=== PATIENT | male | born 1965 | race Caucasian/White ===

== ENCOUNTER 2022-04-25 03:58 | Emergency (ER) | payer OTHER ==
[~2022-04-25] VITALS: Ht 167.6 cm; Wt 59.0 kg
[2022-04-25 04:36] LABS: BASOPHILS ABSOLUTE AUTO 0.05 K/mm3 (0.00-0.23); BASOPHILS PERCENT AUTO 1 % (0-2); EOSINOPHILS ABSOLUTE AUTO 0.09 K/mm3 (0.00-0.68); EOSINOPHILS PERCENT AUTO 1 % (0-6); Hematocrit 51.2 % (37.0-53.0); IMMATURE GRAN ABSOLUTE AUTO 0.06 K/mm3 (0.00-0.10); IMMATURE GRAN PERCENT AUTO 1 % (0-1); LYMPHOCYTES ABSOLUTE AUTO 2.77 K/mm3 (0.84-5.20); LYMPHOCYTES PERCENT AUTO 40 % (21-46); MONOCYTES ABSOLUTE AUTO 0.67 K/mm3 (0.16-1.47); MONOCYTES PERCENT AUTO 10 % (4-13); Mean Corpuscular HGB 35.1 pg (26.0-34.0); Mean Corpuscular HGB Conc 35.2 g/dL (31.5-36.5); Mean Corpuscular Volume 100 fL (80-100); Mean Platelet Volume 12.1 fL (9.1-12.4); NEUTROPHILS ABSOLUTE AUTO 3.27 K/mm3 (1.96-9.15); NEUTROPHILS PERCENT AUTO 47 % (41-73); Platelet Count 144 K/mm3 (150-400); RDW Coefficient Variation 13.1 % (11.7-14.2); RDW Standard Deviation 48.7 fL (35.1-46.3); Red Blood Cell Count 5.13 M/mm3 (4.30-5.90); White Blood Cell Count 6.91 K/mm3 (4.00-11.30)
[2022-04-25 04:59] LABS: Albumin, Blood 3.6 g/dL (3.4-5.0); Albumin/Globulin Ratio 1.1 (0.8-1.8); Bilirubin, Total 0.3 mg/dL (0.1-1.0); Bun/Creatinine Ratio 5.6 (12.0-20.0); Calcium, Blood 8.8 mg/dL (8.5-10.1); Creatinine, Blood 0.89 mg/dL (0.60-1.20); Globulin, Blood 3.2 g/dL (2.2-4.0); Potassium, Blood 4.1 mmol/L (3.5-5.5); Total Protein, Blood 6.8 g/dL (6.4-8.2)
== END 2022-04-25 07:04 | disposition home or self-care (01) ==
LOC: ER 03:58
PROVIDERS: Family Medicine
DX: R42 Dizziness and giddiness (principal); I10 Essential (primary) hypertension; Z72.0 Tobacco use
CPT/HCPCS: 36415; 70450; 80053; 85025; J2550

== ENCOUNTER 2025-05-02 09:47 | Emergency (ER) | payer OTHER ==
[~2025-05-02] VITALS: Ht 167.6 cm; Wt 59.0 kg
[~2025-05-02 09:47] MED LIST: AMOCLA875 PO; B-1100 M1 PO; FOLI1 PO
[2025-05-02 10:02] VITALS: BP 151/98
[2025-05-02] MEDS ORDERED: Prinivil10 MG PO (10:07)
[2025-05-02] MEDS ORDERED: SULTRIDS PO (11:11)
== END 2025-05-02 11:57 | disposition home or self-care (01) ==
LOC: ER 09:47
DX: L03.011 Cellulitis of right finger (principal); Z79.899 Other long term (current) drug therapy
CPT/HCPCS: 73140; 90471; 90715; 99283-25

== ENCOUNTER 2025-08-26 13:08 | Emergency (ER) | payer OTHER ==
[~2025-08-26] VITALS: Ht 167.6 cm; Wt 54.4 kg
[~2025-08-26 13:08] MED LIST changes: +Prinivil10 MG PO; +SULTRIDS PO
[2025-08-26 13:24] VITALS: BP 113/84
[2025-08-27] MEDS ORDERED: Simvastatin20 MG PO (00:56)
[2025-08-27] MEDS ORDERED: PLAVIX75 MG PO (00:56)
== END 2025-08-26 15:30 | disposition home or self-care (01) ==
LOC: ER 13:08
DX: R04.0 Epistaxis (principal); I10 Essential (primary) hypertension; Z79.899 Other long term (current) drug therapy
CPT/HCPCS: 30901; 99283-25; A9270

== ENCOUNTER 2025-08-26 21:45 | Emergency (ER) | payer OTHER ==
[~2025-08-26] VITALS: Ht 167.6 cm; Wt 55.3 kg
[2025-08-26] MEDS ORDERED: Oxymetazoline 0.05% Nasal Relief Spray 15mL BTL ONE (22:00)
[2025-08-26] MEDS ORDERED: Tranexamic Acid 1000 MG/10 ML 10ML Vial (SDV) TOP ONE (23:40)
[2025-08-26 23:51] LABS: BASOPHILS ABSOLUTE AUTO 0.06 K/mm3 (0.00-0.23); BASOPHILS PERCENT AUTO 1 % (0-2); EOSINOPHILS ABSOLUTE AUTO 0.17 K/mm3 (0.00-0.68); EOSINOPHILS PERCENT AUTO 1 % (0-6); Hematocrit 42.1 % (37.0-53.0); Hemoglobin 14.4 g/dL (13.5-17.5); IMMATURE GRAN ABSOLUTE AUTO 0.10 K/mm3 (0.00-0.10); IMMATURE GRAN PERCENT AUTO 1 % (0-1); LYMPHOCYTES ABSOLUTE AUTO 2.43 K/mm3 (0.84-5.20); LYMPHOCYTES PERCENT AUTO 20 % (21-46); MONOCYTES ABSOLUTE AUTO 1.01 K/mm3 (0.16-1.47); MONOCYTES PERCENT AUTO 8 % (4-13); Mean Corpuscular HGB Conc 34.2 g/dL (31.5-36.5); Mean Corpuscular Volume 107 fL (80-100); NEUTROPHILS ABSOLUTE AUTO 8.68 K/mm3 (1.96-9.15); NEUTROPHILS PERCENT AUTO 70 % (41-73); NRBC ABSOLUTE 0.00 K/mm3 (0.00-0.02); NRBC Auto 0.0 /100 WBC (0.0-0.2); Platelet Count 209 K/mm3 (150-400); RDW Coefficient Variation 12.9 % (11.7-14.2); RDW Standard Deviation 51.0 fL (35.1-46.3)
[2025-08-27 00:12] LABS: Alanine Aminotransfer (ALT/SGP 35.0 U/L (12-78); Albumin, Blood 4.0 g/dL (3.4-5.0); Albumin/Globulin Ratio 1.3 (0.8-1.8); Anion Gap 8.0 mmol/L (3-11); Aspartate Aminotrans (AST/SGOT 29.0 U/L (12-37); Bilirubin, Total 0.7 mg/dL (0.1-1.0); Blood Urea Nitrogen 13.0 mg/dL (8-24); CO2, Blood 31.0 mmol/L (21-32); Calcium, Blood 9.1 mg/dL (8.5-10.1); Chloride, Blood 101.0 mmol/L (98-108); Creatinine, Blood 0.75 mg/dL (0.60-1.20); Globulin, Blood 3.1 g/dL (2.2-4.0); Glucose, Blood 128.0 mg/dL (70-99); Potassium, Blood 4.1 mmol/L (3.5-5.5); Sodium, Blood 136.0 mmol/L (136-145); Total Protein, Blood 7.1 g/dL (6.4-8.2)
[2025-08-27 00:14] LABS: Prothrombin Time Results 11.4 Sec (9.7-11.5)
[2025-08-27] MEDS ORDERED: Morphine Sulfate 4 MG/1 ML Injection IV ONE (00:40)
[2025-08-27] MEDS ORDERED: Ondansetron HCl 2 MG / ML 2ML Vial IV ONE (00:45)
[2025-08-27] MEDS ORDERED: Tranexamic Acid 100 ML IV ONE (00:50)
[2025-08-27] MEDS ORDERED: NS 1,000 ML IV ONE (00:52)
[2025-08-27] MEDS ORDERED: Simvastatin20 MG PO (00:56)
[2025-08-27] MEDS ORDERED: PLAVIX75 MG PO (00:56)
[2025-08-27] MEDS ORDERED: NS 1,000 ML IV SCH (01:00)
[2025-08-27] MEDS ORDERED: FentaNYL Citrate 50 MCG/ML 2 ML Injection IV ONE (01:35)
[2025-08-27 02:12] LABS: Hematocrit 35.8 % (37.0-53.0); Hemoglobin 12.1 g/dL (13.5-17.5)
[2025-08-27 02:30] VITALS: BP 189/103
== END 2025-08-27 02:50 | disposition short-term general hospital (02) ==
LOC: ER 21:45
PROVIDERS: Student in an Organized Health Care Education/Training Program
DX: R04.0 Epistaxis (principal); I10 Essential (primary) hypertension; Z88.8 Allergy status to other drugs, medicaments and biological substances
CPT/HCPCS: 30901; 30903; 30906; 80053; 85014; 85018; 85025; 85610; 85730; 86850; 86900; 86901; 96374; 96375; 99283-25; 99285; A9270; J2270; J2405; J3010; J7030

== ENCOUNTER 2025-08-31 13:42 | Emergency (ER) | payer OTHER ==
[~2025-08-31] VITALS: Ht 167.6 cm; Wt 54.9 kg
[~2025-08-31 13:42] MED LIST changes: +PLAVIX75 MG PO; +Simvastatin20 MG PO
[2025-08-31] MEDS ORDERED: NS 1,000 ML IV SCH (13:55)
[2025-08-31 14:21] LABS: BASOPHILS ABSOLUTE AUTO 0.04 K/mm3 (0.00-0.23); BASOPHILS PERCENT AUTO 0 % (0-2); EOSINOPHILS ABSOLUTE AUTO 0.08 K/mm3 (0.00-0.68); EOSINOPHILS PERCENT AUTO 1 % (0-6); Hematocrit 29.1 % (37.0-53.0); Hemoglobin 9.8 g/dL (13.5-17.5); IMMATURE GRAN ABSOLUTE AUTO 0.19 K/mm3 (0.00-0.10); IMMATURE GRAN PERCENT AUTO 2 % (0-1); LYMPHOCYTES ABSOLUTE AUTO 1.86 K/mm3 (0.84-5.20); LYMPHOCYTES PERCENT AUTO 16 % (21-46); MONOCYTES ABSOLUTE AUTO 1.05 K/mm3 (0.16-1.47); MONOCYTES PERCENT AUTO 9 % (4-13); Mean Corpuscular HGB Conc 33.7 g/dL (31.5-36.5); Mean Corpuscular Volume 105 fL (80-100); NEUTROPHILS ABSOLUTE AUTO 8.31 K/mm3 (1.96-9.15); NEUTROPHILS PERCENT AUTO 72 % (41-73); NRBC ABSOLUTE 0.00 K/mm3 (0.00-0.02); NRBC Auto 0.0 /100 WBC (0.0-0.2); Platelet Count 258 K/mm3 (150-400); RDW Coefficient Variation 12.9 % (11.7-14.2); RDW Standard Deviation 49.2 fL (35.1-46.3)
[2025-08-31 14:45] LABS: Alanine Aminotransfer (ALT/SGP 23.0 U/L (12-78); Albumin, Blood 3.7 g/dL (3.4-5.0); Albumin/Globulin Ratio 1.1 (0.8-1.8); Anion Gap 6.0 mmol/L (3-11); Aspartate Aminotrans (AST/SGOT 26.0 U/L (12-37); Bilirubin, Total 0.3 mg/dL (0.1-1.0); Blood Urea Nitrogen 43.0 mg/dL (8-24); CO2, Blood 32.0 mmol/L (21-32); Calcium, Blood 9.2 mg/dL (8.5-10.1); Chloride, Blood 98.0 mmol/L (98-108); Creatinine, Blood 1.43 mg/dL (0.60-1.20); Globulin, Blood 3.4 g/dL (2.2-4.0); Glucose, Blood 141.0 mg/dL (70-99); Potassium, Blood 4.0 mmol/L (3.5-5.5); Sodium, Blood 132.0 mmol/L (136-145); Total Protein, Blood 7.1 g/dL (6.4-8.2)
[2025-08-31] MEDS ORDERED: Tranexamic Acid 1000 MG/10 ML 10ML Vial (SDV) INH ONE (17:05)
[2025-08-31 18:00] VITALS: BP 145/93
== END 2025-08-31 18:07 | disposition home or self-care (01) ==
LOC: ER 13:42
PROVIDERS: Physician Assistant
DX: R04.0 Epistaxis (principal); I10 Essential (primary) hypertension; Z88.5 Allergy status to narcotic agent; Z79.02 Long term (current) use of antithrombotics/antiplatelets; Z79.899 Other long term (current) drug therapy; Z59.89 Other problems related to housing and economic circumstances
CPT/HCPCS: 30901; 80053; 85025; 86850; 86900; 86901; 99283-25

== ENCOUNTER 2025-09-21 22:51 | Emergency (ER) | payer OTHER ==
[~2025-09-21] VITALS: Ht 167.6 cm; Wt 54.9 kg
[~2025-09-21 22:51] MED LIST changes: +ASPI81CH PO; +ATOR80 PO; +NICO21TP TOP; +TRAZ50 PO
[2025-09-21 23:03] LABS: BASOPHILS ABSOLUTE AUTO 0.05 K/mm3 (0.00-0.23); BASOPHILS PERCENT AUTO 1 % (0-2); EOSINOPHILS ABSOLUTE AUTO 0.28 K/mm3 (0.00-0.68); EOSINOPHILS PERCENT AUTO 3 % (0-6); Hematocrit 32.2 % (37.0-53.0); Hemoglobin 10.6 g/dL (13.5-17.5); IMMATURE GRAN ABSOLUTE AUTO 0.05 K/mm3 (0.00-0.10); IMMATURE GRAN PERCENT AUTO 1 % (0-1); LYMPHOCYTES ABSOLUTE AUTO 2.41 K/mm3 (0.84-5.20); LYMPHOCYTES PERCENT AUTO 26 % (21-46); MONOCYTES ABSOLUTE AUTO 0.60 K/mm3 (0.16-1.47); MONOCYTES PERCENT AUTO 7 % (4-13); Mean Corpuscular HGB Conc 32.9 g/dL (31.5-36.5); Mean Corpuscular Volume 104 fL (80-100); NEUTROPHILS ABSOLUTE AUTO 5.90 K/mm3 (1.96-9.15); NEUTROPHILS PERCENT AUTO 64 % (41-73); NRBC ABSOLUTE 0.00 K/mm3 (0.00-0.02); NRBC Auto 0.0 /100 WBC (0.0-0.2); Platelet Count 272 K/mm3 (150-400); RDW Coefficient Variation 13.8 % (11.7-14.2); RDW Standard Deviation 52.6 fL (35.1-46.3)
[2025-09-21 23:27] LABS: Ethanol (Alcohol), Blood, Med 179.0 mg/dL
[2025-09-21 23:43] LABS: pH Blood Venous 7.38 (7.34-7.37)
[2025-09-21 23:56] LABS: Alanine Aminotransfer (ALT/SGP 29.0 U/L (12-78); Albumin, Blood 3.2 g/dL (3.4-5.0); Albumin/Globulin Ratio 0.9 (0.8-1.8); Anion Gap 7.0 mmol/L (3-11); Aspartate Aminotrans (AST/SGOT 66.0 U/L (12-37); Bilirubin, Total 0.3 mg/dL (0.1-1.0); Blood Urea Nitrogen 6.0 mg/dL (8-24); CO2, Blood 32.0 mmol/L (21-32); Calcium, Blood 8.5 mg/dL (8.5-10.1); Chloride, Blood 103.0 mmol/L (98-108); Creatinine, Blood 0.68 mg/dL (0.60-1.20); Globulin, Blood 3.7 g/dL (2.2-4.0); Glucose, Blood 99.0 mg/dL (70-99); Potassium, Blood 5.2 mmol/L (3.5-5.5); Sodium, Blood 137.0 mmol/L (136-145); Total Protein, Blood 6.9 g/dL (6.4-8.2)
[2025-09-22 01:30] VITALS: BP 130/77
[2025-09-22] MEDS ORDERED: CLOP75 PO (01:57)
== END 2025-09-22 02:17 | disposition home or self-care (01) ==
LOC: ER 22:51
PROVIDERS: Emergency Medicine
DX: G45.9 Transient cerebral ischemic attack, unspecified (principal); I10 Essential (primary) hypertension; Z79.82 Long term (current) use of aspirin; Z79.899 Other long term (current) drug therapy; Z88.8 Allergy status to other drugs, medicaments and biological substances
CPT/HCPCS: 70450; 70496; 70498; 80053; 80320; 82803; 85025; 93005; 93010; 99285-25; A9270; Q9967